=== PATIENT | female | born 1990 | race American Indian/Alaskan Native ===

== ENCOUNTER 2017-09-24 13:36 | Emergency (ER) | payer MEDICAID ==
[2017-09-24 13:59] VITALS: BP 171/115
[2017-09-24 14:35] LABS: Bilirubin,Urine NEG (Negative); Blood,Urine NEG (Negative); Color,Urine Yellow (Yellow); Mucus,Urine FEW /HPF; Protein,Urine <15 mg/dL mg/dL (Negative); Urobilinogen,Urine < 2.0 mg/dL (<2.0)
[2017-09-24 14:36] LABS: HCG Qualitative,Urine Negative (Negative)
[2017-09-24] MEDS ORDERED: ZITHROMAX PO ONE (15:26)
[2017-09-24] MEDS ORDERED: FLAGYL PO ONE (15:26)
[2017-09-24] MEDS ORDERED: ROCEPHIN IM ONE (15:26)
--- NOTE | 2017-09-24 15:26 | Emergency Department Report ---
ED Female HPI - General Chief complaint: Urogenital-Female Stated complaint: VAGINAL DISCOMFORT Time Seen by Provider: 09/24/17 15:07 Source: patient Mode of arrival: Ambulatory Limitations: No Limitations - History of Present Illness Initial comments: Patient is a 27-year-old asthmatic female who is complaining of several days of vaginal discharge. Patient has a history of yeast infections. Patient denies any dysuria at this time. Patient states that she also should be taking blood pressure medicines but is not taking them. Patient denies any chest pain shortness of breath fevers chills at this time. Complaint: vaginal discharge Severity: mild Severity scale (0 -10): 4 - Related Data Previous Rx's Medication Instructions Recorded Last Taken Type Fluconazole [Diflucan 200] 200 mg PO QDAY #2 tablet 01/01/14 Unknown Rx amLODIPine [Norvasc] 5 mg PO DAILY #30 tab 09/24/17 Unknown Rx Allergies Allergy/AdvReac Type Severity Reaction Status Date / Time Penicillins AdvReac Swelling Verified 01/01/14 10:39 ED Review of Systems ROS: Stated complaint: VAGINAL DISCOMFORT Other details as noted in HPI Comment: All other systems reviewed and negative ED Past Medical Hx - Past Medical History Hx Hypertension: Yes - Surgical History Past Surgical History?: No - Social History Smoking Status: Never Smoker Substance Use Type: None - Medications Home Medications: Home Medications Medication Instructions Recorded Confirmed Last Taken Type Fluconazole [Diflucan 200] 200 mg PO QDAY #2 tablet 01/01/14 Unknown Rx amLODIPine [Norvasc] 5 mg PO DAILY #30 tab 09/24/17 Unknown Rx ED Physical Exam - General Limitations: No Limitations General appearance: alert, in no apparent distress - Head Head exam: Present: atraumatic, normocephalic - Eye Eye exam: Present: normal appearance - ENT ENT exam: Present: mucous membranes moist - Neck Neck exam: Present: normal inspection - Respiratory Respiratory exam: Present: normal lung sounds bilaterally. Absent: respiratory distress, wheezes, rales, rhonchi - Cardiovascular Cardiovascular Exam: Present: regular rate, normal rhythm. Absent: systolic murmur, diastolic murmur, rubs, gallop - GI/Abdominal GI/Abdominal exam: Present: soft, normal bowel sounds - Extremities Exam Extremities exam: Present: normal inspection - Back Exam Back exam: Present: normal inspection - Neurological Exam Neurological exam: Present: alert, oriented X3 - Psychiatric Psychiatric exam: Present: normal affect, normal mood - Skin Skin exam: Present: warm, dry, intact, normal color. Absent: rash ED Course Vital Signs 09/24/17 13:56 Temperature 99.1 F Pulse Rate 95 H Respiratory 18 Rate Blood Pressure 171/115 O2 Sat by Pulse 99 Oximetry Critical care attestation.: If time is entered above; I have spent that time in minutes in the direct care of this critically ill patient, excluding procedure time. ED Disposition Clinical Impression: Hypertensive urgency, Vaginal discharge Disposition: DC-01 TO HOME OR SELFCARE Is pt being admited?: No Does the pt Need Aspirin: No Condition: Stable Instructions: Hypertension (ED) Prescriptions: amLODIPine [Norvasc] 5 mg PO DAILY #30 tab Referrals: PRIMARY CARE, [Primary Care Provider] - 3-5 Days
[2017-09-24] MEDS ORDERED: XYLOCAINE 1% MPF 5 mL INFILTRATI ONE (15:27)
[2017-09-24] MEDS ORDERED: DIFLUCAN PO NR (16:00)
== END 2017-09-24 16:14 | disposition home or self-care (01) ==
LOC: ED 13:36
DX: N89.8 Other specified noninflammatory disorders of vagina (principal); I10 Essential (primary) hypertension; Z88.0 Allergy status to penicillin
CPT/HCPCS: 81001; 81025; 96372; 99283; J0696